=== PATIENT | male | born 1950 | race Caucasian/White ===

== ENCOUNTER → 2023-07-03 11:34 | Outpatient (REF) | payer OTHER, SELFPAY ==
[2023-07-03 12:23] LABS: % Basophils 0.5 % (0-2); % Immature Granulocytes 1.2 % (0-0.5); % Lymphocytes 23.7 % (20.5-51.1); % Monocytes 39.4 % (1.7-9.3); % Neutrophils 35.2 % (42.2-75.2); Absolute Immature Granulocytes 0.1 10^3/uL (0-0.05); Absolute Monocytes 1.7 10^3/uL (0.1-0.6); Absolute Neutrophils 1.5 10^3/uL (1.4-6.5); Hematocrit 41.3 % (39.0-52.0); Hemoglobin 14.6 g/dL (13.0-18.0); Mean Corp Hgb Conc. 35.4 g/dL (33.0-37.0); Mean Corpuscular Hgb 34.8 pg (27.0-31.0); Mean Corpuscular Volume 98.3 fL (80.0-94.0); Mean Platelet Volume 10.9 fL (7.4-10.4); Nucleated Red Blood Cells % 0 % (-); Platelet Count 108 10^3/uL (130-400); Red Cell Dist. Width 14.1 % (11.5-14.5); White Blood Cell Count 4.3 10^3/uL (4.8-10.8)
[2023-07-03 12:44] LABS: ALT (SGPT) 21 U/L (0-50); AST (SGOT) 27 U/L (17-59); Albumin 4.3 g/dl (3.5-5.0); Alkaline Phosphatase 83 U/L (38-126); Blood Urea Nitrogen 11 mg/dl (9-20); Calcium 9.3 mg/dl (8.4-10.2); Carbon Dioxide 26 mmol/L (22-30); Chloride 104 mmol/L (98-107); Glucose 91 mg/dl (70-99); Potassium 3.6 mmol/L (3.5-5.1); Sodium 140 mmol/L (135-145); Total Bilirubin 1.4 mg/dl (0.2-1.3); Total Protein 7.3 g/dl (6.3-8.2); eGFR > 60.00
== END ==
LOC: REG 11:34
PROVIDERS: ATTENDING PHYSICIAN Family Medicine; REFERRING PHYSICIAN Internal Medicine Hematology & Oncology
DX: F51.04 Psychophysiologic insomnia (principal); I10 Essential (primary) hypertension; C44.91 Basal cell carcinoma of skin, unspecified; M54.50 Low back pain, unspecified; G89.29 Other chronic pain; Z86.010 Personal history of colon polyps
CPT/HCPCS: 36415; 80053; 85025

== ENCOUNTER → 2023-08-05 09:01 | Outpatient (REF) | payer OTHER, SELFPAY | LOC: HWLAB 09:01 | PROVIDERS: ATTENDING PHYSICIAN Family Medicine | DX: Z12.5 Encounter for screening for malignant neoplasm of prostate (principal) | CPT/HCPCS: 36415; G0103 ==

== ENCOUNTER 2024-01-13 06:25 | Day surgery (SDC) | payer OTHER, SELFPAY | END 2024-01-13 09:37 | disposition home or self-care (01) | LOC: GI 06:25 | PROVIDERS: ATTENDING PHYSICIAN Internal Medicine | DX: Z12.11 Encounter for screening for malignant neoplasm of colon (principal); K57.30 Diverticulosis of large intestine without perforation or abscess without bleeding; K63.89 Other specified diseases of intestine; K64.8 Other hemorrhoids; K64.4 Residual hemorrhoidal skin tags; D12.0 Benign neoplasm of cecum; Z86.0101 Personal history of adenomatous and serrated colon polyps | CPT/HCPCS: 45380; 88305 ==

== ENCOUNTER → 2024-03-04 11:09 | Outpatient (REF) | payer OTHER, SELFPAY ==
[2024-03-04 12:02] LABS: Hematocrit 40.4 % (39.0-52.0); Hemoglobin 13.9 g/dL (13.0-18.0); Mean Corp Hgb Conc. 34.4 g/dL (33.0-37.0); Mean Corpuscular Hgb 33.7 pg (27.0-31.0); Mean Corpuscular Volume 97.8 fL (80.0-94.0); Mean Platelet Volume 10.8 fL (7.4-10.4); Platelet Count 105 10^3/uL (130-400); Red Blood Cell Count 4.13 10^6/uL (4.70-6.10); Red Cell Dist. Width 14.5 % (11.5-14.5); White Blood Cell Count 4.2 10^3/uL (4.8-10.8)
[2024-03-04 12:19] LABS: Blood Urea Nitrogen 13 mg/dl (9-20); Calcium 9.1 mg/dl (8.4-10.2); Carbon Dioxide 24 mmol/L (22-30); Chloride 104 mmol/L (98-107); Glucose 95 mg/dl (70-99); HDL Cholesterol 55 mg/dl; LDL Cholesterol, Calculated 61 mg/dl; Potassium 3.8 mmol/L (3.5-5.1); Sodium 139 mmol/L (135-145); Total Cholesterol 135 mg/dl (50-199); Triglyceride 97 mg/dl (10-149); Very Low Density Lipoprotein 19 mg/dl (0-30); eGFR > 60.00
[2024-03-04 14:10] LABS: Absolute Neutrophils -Man Diff 1.5 10^3/uL (1.4-6.5); Atypical Lymphocytes 1 %; Band Neutrophils 0 % (0-3); Lymphocytes 25 % (20-51); Metamyelocytes 2 % (-); Monocytes 32 % (2-9); Myelocytes 2 % (-); Segmented Neutrophils 38 % (42-75)
[2024-03-04 14:11] LABS: Normal RBC Morphology Yes; Platelets Checked Yes; Total Cells Counted 100
== END ==
LOC: REG 11:09
PROVIDERS: ATTENDING PHYSICIAN Internal Medicine Cardiovascular Disease; FAMILY PHYSICIAN Family Medicine
DX: R68.89 Other general symptoms and signs (principal); Z13.228 Encounter for screening for other metabolic disorders; E78.5 Hyperlipidemia, unspecified
CPT/HCPCS: 36415; 80048; 80061; 85025

== ENCOUNTER → 2024-09-02 11:45 | Outpatient (REF) | payer OTHER, SELFPAY ==
[2024-09-02 14:10] LABS: PSA, Total - Screen 5.62 ng/ml (0.0-4.0)
[2024-09-05 11:52] LABS: Rheumatoid Agglutinin Less Than 10 IU (<10 IU)
[2024-09-05 21:03] LABS: CCP Antibody IgG/IgA 69 Units (0-19)
[2024-09-05 21:10] LABS: ANA, IgG Reflex to HEp-2 None Detected (None Detected)
[2024-09-05 22:09] LABS: Box Elder/Maple Tree <0.10 kU/L (<=0.34); Cat Epithelium/Dander <0.10 kU/L (<=0.34); Common/Short Ragweed <0.10 kU/L (<=0.34); Dermatophagoides pteronyssinus <0.10 kU/L (<=0.34); Hormodendrum <0.10 kU/L (<=0.34); Mountain Cedar Tree <0.10 kU/L (<=0.34); Mouse Epithelium <0.10 kU/L (<=0.34); Mugwort Weed <0.10 kU/L (<=0.34); Sheep Sorrel Weed <0.10 kU/L (<=0.34); Sycamore Tree <0.10 kU/L (<=0.34); White Ash Tree <0.10 kU/L (<=0.34); White Mulberry Tree <0.10 kU/L (<=0.34)
[2024-09-06 16:52] LABS: Serine Protease-3, IgG 0 AU/mL (0-19)
== END ==
LOC: REG 11:45
PROVIDERS: ATTENDING PHYSICIAN Family Medicine; OTHER PHYSICIAN Internal Medicine Cardiovascular Disease; OTHER PHYSICIAN Internal Medicine Pulmonary Disease
DX: Z12.5 Encounter for screening for malignant neoplasm of prostate (principal); J47.9 Bronchiectasis, uncomplicated
CPT/HCPCS: 36415; 82103; 82104; 82784; 82785; 83516; 86003; 86038; 86200; 86430; G0103